=== PATIENT | female | born 1970 | race Two or more races ===

== ENCOUNTER 2021-09-04 14:14 | Emergency (ER) | payer BC, OTHER ==
[~2021-09-04] VITALS: Ht 165.1 cm; Wt 106.6 kg
[2021-09-04] MEDS ORDERED: InsuLIN REG 1unit/0.01ml Soln (100units/ml) IV ONE (14:30)
[2021-09-04] MEDS ORDERED: SODIUM CHLORIDE 0.9% 1,000 ML IV ONE ×2 (14:30)
[2021-09-04 14:49] LABS: Basophils # (auto) 0.1 10 ^3/uL (0-0.2); Basophils % (auto) 1.4 % (0.0-2.0); Eosinophils # (auto) 0.2 10 ^3/uL (0-0.8); Eosinophils % (auto) 2.2 % (0.0-7.0); Hematocrit 42.6 % (36.0-46.0); Hemoglobin 13.8 g/dL (12.2-16.2); Lymphocytes # (auto) 2.2 10 ^3/uL (0.4-5.4); Lymphocytes % (auto) 31.1 % (10.0-50.0); Mean Corpuscular Hemoglobin 28.7 pg (28.0-32.0); Mean Corpuscular Hgb Conc. 32.5 g/dL (32.0-36.0); Mean Corpuscular Volume 88.4 fL (80.0-100.0); Monocytes # (auto) 0.4 10 ^3/uL (0-1.3); Monocytes % (auto) 5.7 % (0.0-12.0); Neutrophils # (auto) 4.2 10 ^3/uL (1.6-8.6); Neutrophils % (auto) 59.6 % (37.0-80.0); Nucleated Red Blood Cells % 0.1 %; Red Blood Cells 4.82 10^6/uL (4.0-5.20); Red Cell Distribution Width 13.3 % (11.8-14.3)
[2021-09-04 14:58] LABS: Urine Bacteria FEW /hpf (None Seen); Urine Blood Negative /uL (Negative); Urine Budding Yeast FEW /hpf (None Seen); Urine Specific Gravity 1.032 (1.001-1.035); Urine WBC 16 /hpf (0 - 5)
[2021-09-04 15:03] LABS: Albumin 3.2 g/dL (3.4-5.0); Calcium 8.7 mg/dL (8.5-10.1)
[2021-09-04 15:06] LABS: BUN/Creatinine Ratio 9.2; Bilirubin, Total 0.4 mg/dL (0.2-1.0); Total Protein 7.9 g/dL (6.4-8.2)
[2021-09-04 17:00] VITALS: BP 165/101
[2021-09-04] MEDS ORDERED: NITR-87 PO (17:00)
== END 2021-09-04 17:11 | disposition home or self-care (01) ==
LOC: ER 14:14
DX: E11.65 Type 2 diabetes mellitus with hyperglycemia (principal); N39.0 Urinary tract infection, site not specified; Z90.710 Acquired absence of both cervix and uterus
CPT/HCPCS: 36415; 80053; 81001; 82962; 83036; 84484; 85025; 96361; 96374; 99283; J1815; J7030